=== PATIENT | female | born 1950 | race Caucasian/White ===

== ENCOUNTER → 2018-09-30 11:04 | Outpatient (CLI) | payer OTHER, SELFPAY ==
[2018-09-30 11:48] LABS: Hematocrit 39.5 % (36-46); Hemoglobin 13.1 g/dL (12.0-16.0); Mean Corpuscular HGB Conc 33.2 % (30-36); Mean Corpuscular Hemoglobin 29.7 PG (26-34); Mean Corpuscular Volume 89.6 fL (80-100); Platelet Count 275 X10^3/uL (150-400); Red Cell Distribution Width 14.1 % (11.6-14.8)
[2018-09-30 11:59] LABS: Hemoglobin A1C% w Est Avg Glu 5.4 % (4.0-6.0)
[2018-09-30 12:16] LABS: Alanine Aminotransferase 32 IU/L (9-52); Albumin 4.2 g/dL (3.5-5.0); Albumin Globulin Ratio 1.6 (1.0-2.8); Alkaline Phosphatase 80 U/L (38-126); Aspartate Aminotransferase 24 IU/L (14-36); BUN Creatinine Ratio 22.9 (6-22); Bilirubin Total 0.6 mg/dL (0.2-1.3); Blood Urea Nitrogen 16 mg/dL (7-17); Calcium 9.3 mg/dL (8.4-10.2); Carbon Dioxide 26 mmol/L (22-32); Chloride 105 mmol/L (98-107); Cholesterol 185 mg/dL (140-199); Estimated Glomerular Filt Rate > 60.0 mL/min (>60); Globulin 2.6 g/dL (1.7-4.1); Glucose 100 mg/dL (80-110); HDL Cholesterol 73 mg/dL (40-60); HEMOLYSIS < 15 (0-50); LDL Cholesterol Calculated 85 mg/dL (<100); Sodium 139 mmol/L (137-145); Total Protein 6.8 g/dL (6.3-8.2); Triglycerides 137 mg/dL (35-150)
[2018-10-02 15:40] LABS: Cortisol, Free, Urine 19.9 mcg/24 h (4.0-50.0); Total Volume 3300 mL
== END ==
PROVIDERS: PCP Nurse Practitioner Family; Visit Provider Nurse Practitioner Family
DX: J44.9 Chronic obstructive pulmonary disease, unspecified (principal); Z68.31 Body mass index [BMI] 31.0-31.9, adult; E78.2 Mixed hyperlipidemia; E27.9 Disorder of adrenal gland, unspecified
CPT/HCPCS: 36415; 80053; 80061; 82530; 83036; 85027

== ENCOUNTER → 2018-10-02 10:41 | Outpatient (CLI) | payer OTHER, SELFPAY ==
--- NOTE | 2018-10-02 11:13 | DI.CT.S_ITS ---
PROCEDURE: CT ABDOMEN WO/W CON INDICATIONS: left adrenal mass TECHNIQUE: Noncontrast 3 mm thick sections acquired from the diaphragms to the iliac crests. After the administration of intravenous contrast, 3 mm thick venous-phase and 10-minute delayed images acquired from the diaphragms to the iliac crests. For radiation dose reduction, the following was used: automated exposure control, adjustment of mA and/or kV according to patient size. COMPARISON: Outside Facility, RG, CT ADRENAL WITHOUT CONTRAST, 07/19/2017, 13:04. Outside Facility, RG, CT ADRENAL WITHOUT CONTRAST, 08/19/2016, 17:07. FINDINGS: Image quality: Excellent. Lung bases: Lung bases are clear. Heart size is normal. There is a small hiatal hernia. Adrenal glands: There is a 1.2 cm left adrenal nodule demonstrating CT density 3.0 HU, consistent with a benign adrenal adenoma. It appears stable since the last exam. Solid organs: Liver is normal in size and enhancement. There is mild intrahepatic and extrahepatic biliary dilation. Gallbladder is surgically absent. Biliary system is non dilated. Pancreas enhances normally. Spleen is normal in size and enhancement. Kidneys are normal in size and enhancement. No hydronephrosis or nephrolithiasis. Peritoneum and bowel: Unenhanced bowel loops are normal in caliber and wall thickness. No free fluid or air. Nodes and vessels: No retroperitoneal or mesenteric adenopathy by size criteria. Aorta and inferior vena cava are normal in size. Miscellaneous: No ventral hernias. Bones: No suspicious bony lesions. No vertebral body compression fractures. IMPRESSION: 1. Stable benign 1.2 cm left adrenal adenoma. No further followup is recommended. 2. Cholecystectomy. There is mild intrahepatic and extrahepatic biliary dilation. Please correlate with serum bilirubin. 3. Small hiatal hernia. Dictated by: Annie Barton M.D. on 10/02/2018 at 14:49 Approved by: Annie Barton M.D. on 10/02/2018 at 14:55
== END ==
PROVIDERS: PCP Nurse Practitioner Family; Visit Provider Nurse Practitioner Family
DX: E27.9 Disorder of adrenal gland, unspecified (principal); K83.8 Other specified diseases of biliary tract; K44.9 Diaphragmatic hernia without obstruction or gangrene; Z90.49 Acquired absence of other specified parts of digestive tract
CPT/HCPCS: 74170; Q9967

== ENCOUNTER → 2018-10-05 13:54 | Outpatient (CLI) | payer OTHER, SELFPAY ==
--- NOTE | 2018-10-05 13:56 | DI.MG.S_ITS ---
BILATERAL DIGITAL SCREENING MAMMOGRAM 3D/2D WITH CAD: 10/05/2018 CLINICAL: Routine screening. Comparison is made to exams dated: 07/30/2016 mammogram, 09/14/2014 mammogram, and 08/31/2012 mammogram - [facility]. There are scattered fibroglandular elements in both breasts. Current study was also evaluated with a Computer Aided Detection (CAD) system. There are benign calcifications in both breasts. No significant masses, calcifications, or other findings are seen in either breast. There has been no significant interval change. IMPRESSION: There is no mammographic evidence of malignancy. A 1 year screening mammogram is recommended. This exam was interpreted at Station ID: [id number]. NOTE: For mammograms, a report in lay terms will be sent to the patient. Approximately 15% of breast malignancies will not be visualized mammographically. In the management of a palpable breast mass, a negative mammogram must not discourage biopsy of a clinically suspicious lesion. Electronically Signed By: Eric irby/austen:10/05/2018 17:25:56 letter sent: Normal Exam ACR BI-RADS Category 2: Benign Finding(s) 3342F
== END ==
PROVIDERS: PCP Nurse Practitioner Family; Visit Provider Nurse Practitioner Family
DX: Z12.31 Encounter for screening mammogram for malignant neoplasm of breast (principal)
CPT/HCPCS: 77063; 77067

== ENCOUNTER → 2019-07-06 14:18 | Outpatient (CLI) | payer OTHER, SELFPAY ==
[2019-07-06 15:38] LABS: Alanine Aminotransferase 24 IU/L (<35); Albumin 4.5 g/dL (3.5-5.0); Albumin Globulin Ratio 1.7 (1.0-2.8); Alkaline Phosphatase 100 U/L (38-126); Aspartate Aminotransferase 31 IU/L (14-36); BUN Creatinine Ratio 28.8 (6-22); Bilirubin Total 0.7 mg/dL (0.2-1.3); Blood Urea Nitrogen 23 mg/dL (7-17); Calcium 9.4 mg/dL (8.4-10.2); Carbon Dioxide 25 mmol/L (22-32); Chloride 105 mmol/L (98-107); Cholesterol 193 mg/dL (140-199); Estimated Glomerular Filt Rate > 60.0 mL/min (>60); Globulin 2.6 g/dL (1.7-4.1); Glucose 100 mg/dL (80-110); HDL Cholesterol 94 mg/dL (40-60); HEMOLYSIS < 15 (0-50); LDL Cholesterol Calculated 82 mg/dL (<100); Potassium 4.4 mmol/L (3.4-5.1); Sodium 140 mmol/L (137-145); Total Protein 7.1 g/dL (6.3-8.2); Triglycerides 84 mg/dL (35-150)
[2019-07-06 15:45] LABS: Rheumatoid Factor < 8.6 IU/mL (<12.0)
[2019-07-06 16:58] LABS: Add Manual Diff / Slide Review NO; Basophils Absolute Auto 0 /uL (0-100); Basophils Percent Auto 0.9 % (0-2); Eosinophils Absolute Auto 200 /uL (0-450); Eosinophils Percent Auto 4.5 % (2-4); Hematocrit 41.5 % (36-46); Hemoglobin 13.9 g/dL (12.0-16.0); Lymphocytes Absolute Auto 1600 /uL (1100-4500); Lymphocytes Percent Auto 35.2 % (25-40); Mean Corpuscular HGB Conc 33.5 % (30-36); Mean Corpuscular Hemoglobin 30.7 PG (26-34); Mean Corpuscular Volume 91.4 fL (80-100); Monocytes Absolute Auto 400 /uL (0-900); Monocytes Percent Auto 8.4 % (3-14); Neutrophils Absolute Auto 2300 /uL (1500-7000); Platelet Count 291 X10^3/uL (150-400); Red Blood Cell Count 4.54 X10^6/uL (4.0-5.2); Red Cell Distribution Width 13.7 % (11.6-14.8); White Blood Cell Count 4.4 X10^3/uL (4.5-11.0)
[2019-07-06 19:41] LABS: TSH w/ Reflex to FT4 2.44 uIU/mL (0.47-4.68)
[2019-07-08 14:22] LABS: Alpha 1 Anti Trypsin 132 mg/dL (83-199)
[2019-07-09 12:01] LABS: CCP Antibody (IgG) < 16 Units (< 20)
== END ==
PROVIDERS: PCP Internal Medicine; Visit Provider Internal Medicine
DX: M19.90 Unspecified osteoarthritis, unspecified site (principal); E78.5 Hyperlipidemia, unspecified; J42 Unspecified chronic bronchitis; Z83.49 Family history of other endocrine, nutritional and metabolic diseases; F33.9 Major depressive disorder, recurrent, unspecified
CPT/HCPCS: 36415; 80053; 80061; 82103; 84443; 85025; 86200; 86430

== ENCOUNTER → 2019-09-21 14:05 | Outpatient (CLI) | payer MEDICARE, SELFPAY ==
--- NOTE | 2019-09-21 | DI.RAD.S_ITS ---
PROCEDURE: XR CHEST 2V INDICATIONS: Bronchitis TECHNIQUE: 2 views of the chest were acquired. COMPARISON: None. FINDINGS: Surgical changes and devices: None. Lungs and pleura: Lungs are clear. No pleural effusions or pneumothorax. Mediastinum: Mediastinal contours are normal. Heart size is normal. Lateral curvature of the spine and spondylitic changes IMPRESSION: No acute disease Dictated by: Alber Gerber M.D. on 09/21/2019 at 16:10 Approved by: Alber Gerber M.D. on 09/21/2019 at 16:10
== END ==
PROVIDERS: PCP Internal Medicine; Referring Provider Internal Medicine; Visit Provider Internal Medicine
DX: J40 Bronchitis, not specified as acute or chronic (principal)
CPT/HCPCS: 71046

== ENCOUNTER → 2020-11-15 19:15 | Outpatient (ROUT) | payer MEDICARE, SELFPAY ==
[2020-11-15 20:22] LABS: Alanine Aminotransferase 26 IU/L (<35); Albumin 4.2 g/dL (3.5-5.0); Albumin Globulin Ratio 1.6 (1.0-2.8); Alkaline Phosphatase 107 U/L (38-126); Aspartate Aminotransferase 32 IU/L (14-36); BUN Creatinine Ratio 22.1 (6-22); Bilirubin Total 0.5 mg/dL (0.2-1.3); Blood Urea Nitrogen 17 mg/dL (7-17); Calcium 9.7 mg/dL (8.4-10.2); Carbon Dioxide 23 mmol/L (22-32); Chloride 107 mmol/L (98-107); Estimated Glomerular Filt Rate > 60.0 mL/min (>60); Globulin 2.6 g/dL (1.7-4.1); Glucose 103 mg/dL (80-110); HEMOLYSIS < 15 (0-50); Potassium 4.1 mmol/L (3.4-5.1); Sodium 141 mmol/L (137-145); Total Protein 6.8 g/dL (6.3-8.2)
[2020-11-15 20:49] LABS: TSH w/ Reflex to FT4 2.14 uIU/mL (0.47-4.68)
[2020-11-15 21:14] LABS: Vitamin B12 482 pg/mL (239-931)
== END ==
PROVIDERS: PCP Internal Medicine; Visit Provider Internal Medicine
DX: R20.2 Paresthesia of skin (principal)
CPT/HCPCS: 80053; 82607; 84443

== ENCOUNTER → 2021-02-10 15:10 | Outpatient (CLI) | payer MEDICARE, SELFPAY ==
--- NOTE | 2021-02-10 | DI.MG.S_ITS ---
BILATERAL DIGITAL SCREENING MAMMOGRAM 3D/2D WITH CAD: 02/10/2021 CLINICAL: Routine screening. Comparison is made to exams dated: 10/05/2018 mammogram - [facility], 07/30/2016 mammogram, and 09/14/2014 mammogram - [facility]. There are scattered fibroglandular elements in both breasts. Current study was also evaluated with a Computer Aided Detection (CAD) system. There are benign calcifications in both breasts. No significant masses, calcifications, or other findings are seen in either breast. There has been no significant interval change. IMPRESSION: BENIGN There is no mammographic evidence of malignancy. A 1 year screening mammogram is recommended. This exam was interpreted at Station ID: [id number]. NOTE: For mammograms, a report in lay terms will be sent to the patient. Approximately 15% of breast malignancies will not be visualized mammographically. In the management of a palpable breast mass, a negative mammogram must not discourage biopsy of a clinically suspicious lesion. Electronically Signed By: Chris Sim M.D., jr/austen:02/12/2021 09:38:55 letter sent: Normal Exam ACR BI-RADS Category 2: Benign Finding(s) 3342F
== END ==
PROVIDERS: PCP Internal Medicine; Referring Provider Internal Medicine; Visit Provider Internal Medicine
DX: Z12.31 Encounter for screening mammogram for malignant neoplasm of breast (principal)
CPT/HCPCS: 77063; 77067

== ENCOUNTER → 2021-06-30 10:33 | Outpatient (CLI) | payer MEDICARE, SELFPAY ==
[2021-06-30 10:59] LABS: COVID19 -Nasal RAPID Negative (Negative)
== END ==
PROVIDERS: PCP Internal Medicine; Visit Provider Nurse Practitioner Family
DX: R05.9 Cough, unspecified (principal); R09.89 Other specified symptoms and signs involving the circulatory and respiratory systems
CPT/HCPCS: 87635

== ENCOUNTER → 2021-06-30 10:48 | Outpatient (CLI) | payer MEDICARE, SELFPAY ==
--- NOTE | 2021-06-30 10:49 | DI.RAD.S_ITS ---
PROCEDURE: XR CHEST 2V INDICATIONS: Cough TECHNIQUE: 2 views of the chest were acquired. COMPARISON: [facility], CR, XR CHEST 2V, 09/21/2019, 14:04. FINDINGS: Surgical changes and devices: None. Lungs and pleura: Lungs are clear. No pleural effusions or pneumothorax. Mediastinum: Mediastinal contours are normal. Heart size is normal. Bones and chest wall: No suspicious bony abnormalities. Soft tissues appear unremarkable. IMPRESSION: No acute process. Dictated by: Cristina Shultz M.D. on 06/30/2021 at 10:26 Approved by: Cristina Shultz M.D. on 06/30/2021 at 10:26
== END ==
PROVIDERS: PCP Internal Medicine; Referring Provider Nurse Practitioner Family; Visit Provider Nurse Practitioner Family
DX: R05.9 Cough, unspecified (principal); R09.89 Other specified symptoms and signs involving the circulatory and respiratory systems
CPT/HCPCS: 71046; 87635

== ENCOUNTER → 2021-11-17 12:31 | Outpatient (CLI) | payer MEDICARE, SELFPAY | PROVIDERS: PCP Internal Medicine; Referring Provider Psychiatry & Neurology Neurology; Visit Provider Psychiatry & Neurology Neurology | DX: G37.9 Demyelinating disease of central nervous system, unspecified (principal) | CPT/HCPCS: 36415; 86053; 86363 ==

== ENCOUNTER → 2022-04-13 15:41 | Outpatient (CLI) | payer MEDICARE, SELFPAY ==
--- NOTE | 2022-04-13 15:47 | DI.RAD.S_ITS ---
PROCEDURE: XR CHEST 2V INDICATIONS: COPD TECHNIQUE: 2 views of the chest were acquired. COMPARISON: [facility], CR, XR CHEST 2V, 09/21/2019, 14:04. [facility], CR, XR CHEST 2V, 06/30/2021, 10:43. FINDINGS: Surgical changes and devices: Cholecystectomy clips are seen. Lungs and pleura: Lungs are clear. No pleural effusions or pneumothorax. The lungs are hyperexpanded, with flattening of the hemidiaphragms seen. Mediastinum: The cardiac contours are within normal limits. The aorta demonstrates calcification and tortuosity. Bones and chest wall: No suspicious bony abnormalities. Age-appropriate bony degenerative changes are seen. S-shaped scoliotic curvature is seen. Soft tissues appear unremarkable. IMPRESSION: Hyperexpanded lungs can be seen, which is consistent with the given history. No darinel plain film abnormality is seen. Postoperative and degenerative changes are seen. Dictated by: Ronald Jenkins M.D. on 04/13/2022 at 15:32 Approved by: Ronald Jenkins M.D. on 04/13/2022 at 15:33
== END ==
PROVIDERS: PCP Internal Medicine; Referring Provider Internal Medicine; Visit Provider Internal Medicine
DX: J44.9 Chronic obstructive pulmonary disease, unspecified (principal)
CPT/HCPCS: 71046

== ENCOUNTER → 2022-05-04 09:57 | Outpatient (CLI) | payer OTHER, SELFPAY ==
--- NOTE | 2022-05-04 | DI.MG.S_ITS ---
BILATERAL DIGITAL SCREENING MAMMOGRAM 3D/2D WITH CAD: 05/04/2022 CLINICAL: Routine screening. Comparison is made to exams dated: 02/10/2021 mammogram, 10/05/2018 mammogram - [facility], and 07/30/2016 mammogram - [facility]. There are scattered areas of fibroglandular density in both breasts (category b / 25%-50% glandular tissue). Current study was also evaluated with a Computer Aided Detection (CAD) system. There are benign calcifications in both breasts. No significant masses, calcifications, or other findings are seen in either breast. There has been no significant interval change. IMPRESSION: BENIGN There is no mammographic evidence of malignancy. A 1 year screening mammogram is recommended. Based on the Tyrer Cuzick model (a risk assessment model) the patient's lifetime risk is 4.7% and her 10 year risk is 3.5%. According to the ACR, ACS, and NCCN guidelines, an annual breast MRI exam along with mammogram is recommended if the patient's lifetime risk is 20% or greater. This exam was interpreted at Station ID: [id number]. NOTE: For mammograms, a report in lay terms will be sent to the patient. Approximately 15% of breast malignancies will not be visualized mammographically. In the management of a palpable breast mass, a negative mammogram must not discourage biopsy of a clinically suspicious lesion. Electronically Signed By: Eric irby/austen:05/06/2022 11:14:45 letter sent: Normal Exam ACR BI-RADS Category 2: Benign Finding(s) 3342F
== END ==
PROVIDERS: PCP Internal Medicine; Referring Provider Internal Medicine; Visit Provider Internal Medicine
DX: Z12.31 Encounter for screening mammogram for malignant neoplasm of breast (principal)
CPT/HCPCS: 77063; 77067

== ENCOUNTER → 2022-06-29 12:10 | Outpatient (CLI) | payer OTHER, SELFPAY ==
[2022-06-29 15:02] LABS: Cholesterol 173 mg/dL (140-199); HDL Cholesterol 59 mg/dL (40-60); LDL Cholesterol Calculated 94 mg/dL (<100); Triglycerides 102 mg/dL (35-150)
== END ==
PROVIDERS: PCP Internal Medicine; Referring Provider Internal Medicine Cardiovascular Disease; Visit Provider Internal Medicine Cardiovascular Disease
DX: I35.9 Nonrheumatic aortic valve disorder, unspecified (principal)
CPT/HCPCS: 36415; 80061

== ENCOUNTER → 2022-11-01 10:11 | Outpatient (CLI) | payer OTHER, SELFPAY ==
--- NOTE | 2022-11-01 10:25 | DI.DEXA.S_ITS ---
Bone Density Report Name: BARBARA KHOURY Age: 71 Sex: Female Ethnicity: White Date of : 1950 Indication: postmenopausal; screening for osteoporosis; Referring Provider: DIONISIO ARREGUIN Study: Bone densitometry was performed. Exam Date: November 01, 2022 Accession number: [id number] Bone Density: Region BMD T-score Z-score Classification AP Spine(L1-L4) 1.074 0.2 2.5 Normal Femoral Neck (Left) 0.663 -1.7 0.3 Osteopenia Total Hip (Left) 0.797 -1.2 0.5 Osteopenia Femoral Neck (Right) 0.743 -1.0 1.0 Normal Total Hip (Right) 0.772 -1.4 0.3 Osteopenia Total Hip Mean 0.785 -1.3 0.4 Osteopenia World Health Organization criteria for BMD impression classify patients as: Normal (T-score at or above -1.0), Osteopenia (T-score between -1.0 and -2.5), or Osteoporosis (T-score at or below -2.5). 10-year Fracture Risk(1): Major Osteoporotic Fracture 11% Hip Fracture 1.9% Reported Risk Factors: [place] (), Neck BMD=0.663, BMI=31.0 (1) FRAX(R) Version 3.08. Fracture probability calculated for an untreated patient. Fracture probability may be lower if the patient has received treatment. Impression: The patient has low bone mass, based on the Left Femoral Neck T-score. The patient has an estimated ten-year risk of hip fracture of 1.9% and an estimated ten-year risk of major fracture of 11%, based on the WHO FRAX algorithm. Discussion: BONE DENSITY IS LOW AT ONE OR MORE SKELETAL SITES. This patient's lowest T-score is low at one or more skeletal sites. It meets the World Health Organization's (WHO) criteria for ?low bone mass? (T-score between -1.0 and -2.5). The patient's 10-year risk of fracture as calculated by FRAX is less than the threshold where pharmacological therapy is recommended by the National Osteoporosis Foundation (NOF). However, all treatment decisions require clinical judgment and consideration of individual patient factors, including patient preferences, comorbidities, previous drug use, risk factors not captured in the FRAX model (e.g., frailty, falls, vitamin D deficiency, increased bone turnover, interval significant decline in bone density) and possible under or overestimation of fracture risk by FRAX. The patient should follow a healthful lifestyle (good nutrition with adequate calcium and vitamin D, and appropriate weight-bearing exercise). Follow-Up: Consider repeating this study in 2 to 3 years to reassess this patient's status, or sooner if there is some new clinical indication. Reported by: DIDIER BRUNER M.D. on 11/01/2022 10:38:00 AM.
== END ==
PROVIDERS: PCP Internal Medicine; Referring Provider Internal Medicine; Visit Provider Internal Medicine
DX: Z78.0 Asymptomatic menopausal state (principal); Z13.820 Encounter for screening for osteoporosis; M85.852 Other specified disorders of bone density and structure, left thigh
CPT/HCPCS: 77080

== ENCOUNTER → 2023-05-17 11:39 | Outpatient (CLI) | payer OTHER, SELFPAY ==
--- NOTE | 2023-05-17 | DI.MG.S_ITS ---
BILATERAL DIGITAL SCREENING MAMMOGRAM 3D/2D WITH CAD: 05/17/2023 CLINICAL: Routine screening. Comparison is made to exams dated: 05/04/2022 mammogram, 02/10/2021 mammogram, and 10/05/2018 mammogram - [facility]. There are scattered areas of fibroglandular density in both breasts (category b / 25%-50% glandular tissue). Current study was also evaluated with a Computer Aided Detection (CAD) system. There are benign calcifications in both breasts. No significant masses, calcifications, or other findings are seen in either breast. There has been no significant interval change. IMPRESSION: BENIGN There is no mammographic evidence of malignancy. A 1 year screening mammogram is recommended. Based on the Tyrer Cuzick model (a risk assessment model) the patient's lifetime risk is 4.5% and her 10 year risk is 3.6%. According to the ACR, ACS, and NCCN guidelines, an annual breast MRI exam along with mammogram is recommended if the patient's lifetime risk is 20% or greater. This exam was interpreted at Station ID: [id number]. NOTE: For mammograms, a report in lay terms will be sent to the patient. Approximately 15% of breast malignancies will not be visualized mammographically. In the management of a palpable breast mass, a negative mammogram must not discourage biopsy of a clinically suspicious lesion. Electronically Signed By: Moreno pedraza/austen:05/17/2023 14:03:43 letter sent: Normal Exam ACR BI-RADS Category 2: Benign Finding(s) 3342F
== END ==
PROVIDERS: PCP Internal Medicine; Referring Provider Internal Medicine; Visit Provider Internal Medicine
DX: Z12.31 Encounter for screening mammogram for malignant neoplasm of breast (principal)
CPT/HCPCS: 77063; 77067

== ENCOUNTER 2024-01-12 11:33 | Emergency (ER) | payer MEDICARE, SELFPAY ==
[2024-01-12] VITALS (11 sets, daily range): BP systolic 143–180; BP diastolic 65–81; PULSE 55–68; RESP 18–20; TEMP 37; O2SAT 94–99; BMI 31.8
--- NOTE | 2024-01-12 11:36 | EKG_ITS ---
[address] [address] Test Date: 2024-01-12 Pat Name: Rosio Banks Department: Room: Gender: Female Skip Pitman: MARIA ISABEL : 1950 Requested By: Order Number: [id number] Reading MD: Bimal Vasquez Measurements Intervals [place] Rate: 53 P: 44 SC: 160 QRS: 73 QRSD: 98 T: 67 QT: 498 QTc: 467 Interpretive Statements Sinus bradycardia with sinus arrhythmia Electronically Signed On 01-12-2024 16:37:36 PDT by Bimal Vasquez
--- NOTE | 2024-01-12 11:52 | DI.CT.S_ITS ---
PROCEDURE: CT ABDOMEN PELVIS W CON INDICATIONS: L flank pain TECHNIQUE: After the administration of intravenous contrast, axial sections acquired from the lung bases to the pubic symphysis. Coronal and sagittal reformats were performed. For radiation dose reduction, the following was used: automated exposure control, adjustment of mA and/or kV according to patient size. COMPARISON: [facility], CT, CT ABDOMEN WO/W CON, 10/02/2018, 10:49. FINDINGS: Image quality: Diagnostic. Lower Chest: No significant findings. ABDOMEN: Liver: No solid mass. Gallbladder: Surgically absent Biliary ducts: Mild intrahepatic biliary ductal dilatation. Severe extrahepatic biliary ductal dilatation. Common hepatic duct measures 20 mm. Common bile duct measures 15 mm. This is increased. Pancreas: No ductal dilation. Spleen: Size is within normal limits. Adrenal Glands: No adrenal nodules. Kidneys and Ureters: No hydronephrosis. No solid mass. No complex renal cystic lesion which requires follow up. Stomach and Bowel: Small hiatal hernia. Normal colonic caliber, without significant wall thickening. Appendix is not seen. No evidence of appendicitis. Diverticulosis of the descending and sigmoid colon without evidence of acute diverticulitis. Peritoneum: No abnormal intraperitoneal fluid. No free air. Ventral Wall: No significant ventral hernia. Abdominal Nodes: No retroperitoneal or mesenteric adenopathy by size criteria. Vessels: Aorta and inferior vena cava are normal in size. PELVIS: Pelvic Organs: Unremarkable. Bladder: No bladder wall thickening, accounting for underdistention. Pelvic Nodes: No enlarged lymph nodes. Miscellaneous: No inguinal hernias are seen. Bones: No aggressive osseous abnormality. IMPRESSION: 1. No acute process. 2. Increased biliary ductal dilatation. This could be further assessed with ERCP, if clinically indicated. 3. Appendix not seen. No evidence of appendicitis. 4. Small hiatal hernia. Dictated by: Cristina Shultz M.D. on 01/12/2024 at 13:03 Approved by: Cristina Shultz M.D. on 01/12/2024 at 13:07
[2024-01-12 11:53] LABS: Add Manual Diff / Slide Review NO; Basophils Absolute Auto 0 /uL (0-100); Basophils Percent Auto 0.5 % (0-2); Eosinophils Absolute Auto 0 /uL (0-450); Eosinophils Percent Auto 0.3 % (2-4); Hemoglobin 14.1 g/dL (12.0-16.0); Lymphocytes Absolute Auto 700 /uL (1100-4500); Mean Corpuscular HGB Conc 33.6 % (30-36); Mean Corpuscular Hemoglobin 30.2 PG (26-34); Mean Corpuscular Volume 89.8 fL (80-100); Monocytes Absolute Auto 200 /uL (0-900); Monocytes Percent Auto 3.5 % (3-14); Neutrophils Absolute Auto 4100 /uL (1500-7000); Neutrophils Percent Auto 81.7 % (50-75); Platelet Count 234 X10^3/uL (150-400); Red Blood Cell Count 4.68 X10^6/uL (4.0-5.2); Red Cell Distribution Width 13.6 % (11.6-14.8)
[2024-01-12 12:01] LABS: Alanine Aminotransferase 34 IU/L (<35); Albumin 4.8 g/dL (3.5-5.0); Albumin Globulin Ratio 1.6 (1.0-2.8); Alkaline Phosphatase 118 U/L (38-126); Aspartate Aminotransferase 42 IU/L (14-36); BUN Creatinine Ratio 21.7 (6-22); Bilirubin Total 0.8 mg/dL (0.2-1.3); Blood Urea Nitrogen 15 mg/dL (7-17); Calcium 8.9 mg/dL (8.4-10.2); Carbon Dioxide 23 mmol/L (22-32); Chloride 105 mmol/L (98-107); Estimated Glomerular Filt Rate > 60 mL/min (>60); Glucose 148 mg/dL (80-110); HEMOLYSIS < 15 (0-50); Lipase 74 U/L (23-300); Potassium 3.6 mmol/L (3.4-5.1); Sodium 137 mmol/L (137-145); Total Protein 7.8 g/dL (6.3-8.2)
--- NOTE | 2024-01-12 12:01 | ED.BACK ---
HPI - Back Pain/Injury General Chief Complaint: Back Pain/Injury Stated Complaint: Left flank pain Time Seen by Provider: 01/12/24 11:46 Source: patient and EMS Mode of arrival: EMS Limitations: no limitations History of Present Illness HPI Narrative: Patient is a 73-year-old female who is here for evaluation of left-sided flank pain that she states is radiating around to the left side of her abdomen. States the symptoms started earlier this morning. She did take Celebrex this morning. The pain has been consistent. Not worse with palpation or movement. No blood in her urine. No problems urinating. She received some Zofran and fentanyl by EMS prior to arrival. She continues to remain nauseous. States the fentanyl did not improve any of her symptoms. She was never had a kidney stone. No skin rashes. No change in bowel habits. Related Data Home Medications Medication Instructions Recorded Confirmed calcium carbonate-vitamin D3 PO 08/14/18 12/12/23 [Calcium 600 with Vitamin D3] multivitamin,[id number] 1 tab PO DAILY 08/14/18 12/12/23 (Complete Multivitamin tablet) cetirizine 10 mg capsule 10 mg PO DAILY 09/09/18 12/12/23 Glucosamine-Chondroitin PO BID 10/13/18 12/12/23 baclofen 10 mg tablet 10 mg PO DAILY 12/12/23 12/12/23 budesonide-formoterol HFA 160 2 puff inhalation BID 12/12/23 12/12/23 mcg-4.5 mcg/actuation aerosol inhaler (Symbicort) celecoxib 200 mg capsule 200 mg PO DAILY 12/12/23 12/12/23 fluoxetine 40 mg capsule 40 mg PO DAILY 12/12/23 12/12/23 rosuvastatin 20 mg tablet 20 mg PO DAILY 12/12/23 12/12/23 Previous Rx's Medication Instructions Recorded Disabled parking permit #1 ea 09/09/18 mirtazapine 15 mg tablet 15 mg PO DAILY #90 tabs 12/24/18 fluticasone propionate 50 2 spray intranasal DAILY #54.6 01/20/19 mcg/actuation nasal grams spray,suspension (Allergy Relief (fluticasone)) azelastine 137 mcg (0.1 %) nasal 137 mcg (0.137 mL) intranasal BID 12/12/23 spray aerosol #90 mL azithromycin 250 mg tablet See Rx Instructions PO .COMPLEX #6 12/12/23 tabs hydrocodone 5 mg-acetaminophen 325 1 tab PO Q8H PRN pain #10 tabs 01/12/24 mg tablet ondansetron 4 mg disintegrating 4 mg PO Q6H PRN nausea and 01/12/24 tablet vomiting #14 tabs Allergies Allergy/AdvReac Type Severity Reaction Status Date / Time No Known Drug Allergies Allergy Verified 12/12/23 15:28 Review of Systems Review of Systems ROS Unobtainable: All systems reviewed & are unremarkable except as noted in HPI and below Patient History Medical History Vision disorder Actinic keratosis Osteoarthritis (~1989) Bronchial spasms Postnasal drip (~1994) COPD (chronic obstructive pulmonary disease) (~1994) Chronic cough (~1994) Depression (~1984) Anxiety (~1984) Scoliosis Back problem (~2007) Foot pain (~2016) Cervical spine disease (~2016) Rubella (~1956) Measles (~1956) Chicken pox (~1954) Vitreous detachment (~2012) History of recurrent ear infection (~1984) Hearing loss (~2012) Cataracts, bilateral (~2015) GERD (gastroesophageal reflux disease) (~2014) Diverticular disease (~2013) Colon polyps (~2015) Adrenal mass (~2015) Hyperlipidemia (~2005) Surgical History Anesthesia Fractures (~1988) History of cholecystectomy (~2016) History of ear surgery (~1984) History of nasal surgery (~2014) History of surgery (~1996) History of tonsillectomy (~1953) History of tubal ligation (~1980) Family History Father Heart disease Hypertension Stroke Mother Diabetes mellitus Brother Ulcerative colitis Grandfather Stroke Grandfather Stroke Grandmother Heart disease Social History Smoking Status: Former smoker second hand exposure: No alcohol intake: current (1-2 glasses of wine a day) substance use type: does not use Smoking Status: Former smoker alcohol intake frequency: a few times a week Substance Use Type: does not use Exam Initial Vital Signs Initial Vital Signs: Vital Signs Temperature 98.6 F 01/12/24 11:39 Pulse Rate 55 L 01/12/24 11:39 Respiratory Rate 18 01/12/24 11:39 Blood Pressure 155/75 H 01/12/24 11:39 Pulse Oximetry 97 01/12/24 11:39 Oxygen Delivery Method Room Air 01/12/24 11:39 Const General: cooperative and No ill appearing HENPA Head: normal to inspection and normocephalic Resp Effort & Inspection: normal respiratory effort Auscultation: clear to auscultation bilaterally Cardio Rate: regular rate Rhythm: regular rhythm Back/Spine/Pelvis Back: No CVA tenderness Thoracic/Lumbar Spine: No paraspinal tenderness and No lumbar spinal tenderness Skin General: no rashes or lesions noted Neuro General: patient alert, patient awake and moves all extremities Course Orders Ordered: ED Orders 01/12/24 11:30 Complete Blood Count AUTO DIFF Stat Comprehensive Metabolic Panel Stat Lipase Stat 01/12/24 11:36 EKG-12 Lead Stat 01/12/24 11:52 CT abdomen pelvis w con Stat 01/12/24 13:50 Urine Microscopic Stat Discontinued Medications Ketorolac Tromethamine (Ketorolac 30 Mg/Ml Vial) 30 mg IV NOW ONE Stop: 01/12/24 12:02 Last Admin: 01/12/24 12:08 Dose: 30 mg Documented By: ROSE MARIE Metoclopramide HCl (Metoclopramide 10 Mg/2 Ml Inj) 10 mg IV NOW ONE Stop: 01/12/24 14:17 Last Admin: 01/12/24 14:25 Dose: 10 mg Documented By: KELSI Ondansetron HCl (Ondansetron 4 Mg/2 Ml Inj) 4 mg IV NOW PRN PRN Reason: Nausea And Vomiting Last Admin: 01/12/24 13:07 Dose: 4 mg Documented By: ROSE MARIE Vital Signs Vital signs: Vital Signs - 8 hr 01/12/24 11:39 01/12/24 13:53 01/12/24 13:54 Temperature 98.6 F Pulse Rate 55 L 63 Respiratory Rate 18 Blood Pressure 155/75 H 180/81 H Pulse Oximetry 97 98 Oxygen Delivery Method Room Air 01/12/24 13:54 01/12/24 14:00 01/12/24 14:01 Temperature Pulse Rate 63 61 65 Respiratory Rate Blood Pressure Pulse Oximetry 98 99 98 Oxygen Delivery Method Room Air 01/12/24 14:01 01/12/24 14:30 01/12/24 14:31 Temperature Pulse Rate 63 68 Respiratory Rate Blood Pressure 146/67 H Pulse Oximetry 98 98 Oxygen Delivery Method 01/12/24 14:31 01/12/24 15:00 01/12/24 15:00 Temperature Pulse Rate 60 Respiratory Rate Blood Pressure 157/79 H 156/73 H Pulse Oximetry 94 Oxygen Delivery Method 01/12/24 15:30 01/12/24 15:36 01/12/24 15:36 Temperature Pulse Rate 66 63 Respiratory Rate Blood Pressure 143/65 H Pulse Oximetry 96 Oxygen Delivery Method 01/12/24 15:51 Temperature Pulse Rate 65 Respiratory Rate 20 Blood Pressure 143/65 H Pulse Oximetry 96 Oxygen Delivery Method Room Air MDM - Back Pain/Injury Lab Data Attestation: I reviewed the patient's lab results. 01/12/24 11:30 01/12/24 11:30 Labs: Lab Results 01/12/24 01/12/24 Range/Units 11:30 13:50 WBC 5.0 (4.5-11.0) X10^3/uL RBC 4.68 (4.0-5.2) X10^6/uL Hgb 14.1 (12.0-16.0) g/dL Hct 42.0 (36-46) % MCV 89.8 (80-100) fL MCH 30.2 (26-34) PG MCHC 33.6 (30-36) % RDW 13.6 (11.6-14.8) % Plt Count 234 (150-400) X10^3/uL Neut % (Auto) 81.7 H (50-75) % Lymph % (Auto) 14.0 L (25-40) % [place] % (Auto) 3.5 (3-14) % Eos % (Auto) 0.3 L (2-4) % Baso % (Auto) 0.5 (0-2) % Neut # (Auto) 4100 (6530-9151) /uL Lymph # (Auto) 700 L (4026-8067) /uL [place] # (Auto) 200 (0-900) /uL Eos # (Auto) 0 (0-450) /uL Baso # (Auto) 0 (0-100) /uL Sodium 137 (137-145) mmol/L Potassium 3.6 (3.4-5.1) mmol/L Chloride 105 (98-107) mmol/L Carbon Dioxide 23 (22-32) mmol/L BUN 15 (7-17) mg/dL Creatinine 0.69 (0.52-1.04) mg/dL Estimated GFR > 60 (>60) mL/min BUN/Creatinine Ratio 21.7 (6-22) Glucose 148 H (80-110) mg/dL Calcium 8.9 (8.4-10.2) mg/dL Total Bilirubin 0.8 (0.2-1.3) mg/dL AST 42 H (14-36) IU/L ALT 34 (<35) IU/L Alkaline Phosphatase 118 (38-126) U/L Total Protein 7.8 (6.3-8.2) g/dL Albumin 4.8 (3.5-5.0) g/dL Globulin 3.0 (1.7-4.1) g/dL Albumin/Globulin Ratio 1.6 (1.0-2.8) Lipase 74 (23-300) U/L Urine RBC 0-1/hpf (0-5/HPF) Urine WBC None seen (0-5/HPF) Ur Squamous Epith Cells 0-1 /hpf (0-5/HPF) Urine Bacteria None seen (None) Ur Culture Indicated? Cult not indicated Vol Urine Centrifuged 10ml (spun) Urine Dip Bedside Urine Glucose Negative Bedside Urine Bilirubin - Negative Bedside Urine Ketone ++ 40 Urine Specific [place] 1.010 Bedside Urine Occult Blood +/- Bedside Urine pH 7.0 Bedside Urine Protein - Negative Bedside Urine Urobilinogen - Negative Bedside Urine Nitrite - Negative Bedside Urine Leukocytes - Negative Esterase Imaging Data CT scan - abdomen/pelvis: Radiologist's Impression: PROCEDURE: CT ABDOMEN PELVIS W CON INDICATIONS: L flank pain TECHNIQUE: After the administration of intravenous contrast, axial sections acquired from the lung bases to the pubic symphysis. Coronal and sagittal reformats were performed. For radiation dose reduction, the following was used: automated exposure control, adjustment of mA and/or kV according to patient size. COMPARISON: [facility], CT, CT ABDOMEN WO/W CON, 10/02/2018, 10:49. FINDINGS: Image quality: Diagnostic. Lower Chest: No significant findings. ABDOMEN: Liver: No solid mass. Gallbladder: Surgically absent Biliary ducts: Mild intrahepatic biliary ductal dilatation. Severe extrahepatic biliary ductal dilatation. Common hepatic duct measures 20 mm. Common bile duct measures 15 mm. This is increased. Pancreas: No ductal dilation. Spleen: Size is within normal limits. Adrenal Glands: No adrenal nodules. Kidneys and Ureters: No hydronephrosis. No solid mass. No complex renal cystic lesion which requires follow up. Stomach and Bowel: Small hiatal hernia. Normal colonic caliber, without significant wall thickening. Appendix is not seen. No evidence of appendicitis. Diverticulosis of the descending and sigmoid colon without evidence of acute diverticulitis. Peritoneum: No abnormal intraperitoneal fluid. No free air. Ventral Wall: No significant ventral hernia. Abdominal Nodes: No retroperitoneal or mesenteric adenopathy by size criteria. Vessels: Aorta and inferior vena cava are normal in size. PELVIS: Pelvic Organs: Unremarkable. Bladder: No bladder wall thickening, accounting for underdistention. Pelvic Nodes: No enlarged lymph nodes. Miscellaneous: No inguinal hernias are seen. Bones: No aggressive osseous abnormality. IMPRESSION: 1. No acute process. 2. Increased biliary ductal dilatation. This could be further assessed with ERCP, if clinically indicated. 3. Appendix not seen. No evidence of appendicitis. 4. Small hiatal hernia. ECG Data Attestation: I personally reviewed and interpreted this ECG as follows: Interpretation: Sinus bradycardia Ventricular rate of 53 Normal axis Normal QRS Normal QTC No ST T wave changes MDM Narrative Medical decision making narrative: Benign exam. Labs unremarkable. Urine unremarkable. CT scan shows no acute pathology. No skin changes concerning for zoster. Does not appear to be a urinary tract infection, pyelonephritis, renal colic or other intra-abdominal surgical issue. No indication for admission to the hospital. No indication for surgical consultation. Will discharge home with medicines for symptom treatment. Patient was given return precautions. Discharge Plan Departure Patient Disposition: Home Clinical Impression: Acute left flank pain, Nausea Instructions: DI for Nausea -- Adult, DI for Flank Pain Activity Restrictions/Additional Instructions: Use the nausea medication in the pain medication as needed. I do recommend a bland diet for the next couple days. Contact your primary care doctor for a follow-up. Return to the emergency department for new symptoms. Prescriptions: New ondansetron 4 mg tablet,disintegrating 4 mg PO Q6H PRN (Reason: nausea and vomiting) Qty: 14 0RF hydrocodone-acetaminophen 5-325 mg tablet 1 tab PO Q8H PRN (Reason: pain) Qty: 10 0RF No Action cetirizine 10 mg capsule 10 mg PO DAILY (DME) Disabled parking permit Qty: 1 0RF Dose Instruction: Patient meets criteria for disabled placard ; Rx Instructions: Patient meets criteria for disabled placard ; multivitamin,[id number] [Complete Multivitamin] tablet 1 tab PO DAILY calcium carbonate-vitamin D3 PO Glucosamine-Chondroitin PO BID mirtazapine 15 mg tablet 15 mg PO DAILY Qty: 90 2RF fluticasone propionate [Allergy Relief (fluticasone)] 50 mcg/actuation spray,suspension 2 spray NASAL DAILY Qty: 54.6 3RF celecoxib 200 mg capsule 200 mg PO DAILY rosuvastatin 20 mg tablet 20 mg PO DAILY fluoxetine 40 mg capsule 40 mg PO DAILY budesonide-formoterol [Symbicort] 160-4.5 mcg/actuation HFA aerosol inhaler 2 puff inhalation BID baclofen 10 mg tablet 10 mg PO DAILY azelastine 137 mcg (0.1 %) aerosol,spray 137 mcg intranasal BID Qty: 90 0RF Rx Instructions: administer into each nostril azithromycin 250 mg tablet See Rx Instructions PO .COMPLEX Qty: 6 0RF Rx Instructions: For 250 mg dose pack: take 500 mg today (day 1), then 250 mg for 4 days (days 2-5) PO Referrals: Sabra Whitney MD [Primary Care Provider] - Stand Alone Forms: Patient Portal/API
[2024-01-12] MEDS: KETOROLAC 30 MG/ML VIAL IV (12:08)
[2024-01-12] MEDS: ONDANSETRON 4 MG/2 ML INJ IV (13:07)
[2024-01-12 14:15] LABS: Bacteria Urine None Seen; RBC Urine 0-1/HPF (0-5/HPF); Squamous Epithelial Cell Urine 0-1 /HPF (0-5/HPF); Urine Volume 10mL (spun); WBC Urine None Seen (0-5/HPF)
[2024-01-12 14:16] LABS: Culture Indicated Urine Cult Not Indicated
[2024-01-12] MEDS: METOCLOPRAMIDE 10 MG/2 ML INJ IV (14:25)
== END 2024-01-12 15:48 | disposition home or self-care (01) ==
PROVIDERS: Emergency Provider Emergency Medicine; PCP Internal Medicine
DX: R10.9 Unspecified abdominal pain (principal); R11.0 Nausea
CPT/HCPCS: 36415; 74177; 80053; 81003; 81015; 83690; 85025; 93005; 96374; 96375; 99284; J1885; J2405; J2765; Q9967

== ENCOUNTER → 2024-06-03 15:21 | Outpatient (CLI) | payer MEDICARE, SELFPAY ==
--- NOTE | 2024-06-03 15:22 | DI.MG.S_ITS ---
BILATERAL DIGITAL SCREENING MAMMOGRAM 3D/2D WITH CAD: 06/03/2024 CLINICAL: Routine screening. Comparison is made to exams dated: 05/17/2023 mammogram, 05/04/2022 mammogram, 02/10/2021 mammogram, and 10/05/2018 mammogram - [facility]. There are scattered areas of fibroglandular density (category b / 25%-50% glandular tissue). Current study was also evaluated with a Computer Aided Detection (CAD) system. No significant masses, calcifications, or other findings are seen in either breast. There has been no significant interval change. IMPRESSION: NEGATIVE There is no mammographic evidence of malignancy. A 1 year screening mammogram is recommended. Based on the Tyrer Cuzick model (a risk assessment model) the patient's lifetime risk is 4.2% and her 10 year risk is 3.7%. According to the ACR, ACS, and NCCN guidelines, an annual breast MRI exam along with mammogram is recommended if the patient's lifetime risk is 20% or greater. This exam was interpreted at Station ID: [id number]. NOTE: For mammograms, a report in lay terms will be sent to the patient. Approximately 15% of breast malignancies will not be visualized mammographically. In the management of a palpable breast mass, a negative mammogram must not discourage biopsy of a clinically suspicious lesion. Electronically Signed By: Tatiana Holm M.D., Ph.D. richard/austen:06/05/2024 16:27:22 letter sent: Normal Exam ACR BI-RADS Category 1: Negative
== END ==
PROVIDERS: PCP Internal Medicine; Referring Provider Internal Medicine; Visit Provider Internal Medicine
DX: Z12.31 Encounter for screening mammogram for malignant neoplasm of breast (principal)
CPT/HCPCS: 77063; 77067

== ENCOUNTER 2025-02-07 17:42 | Emergency (ER) | payer MEDICARE, SELFPAY ==
[2025-02-07 18:02] VITALS: BP 147/82; PULSE 87; RESP 18; TEMP 36.7; O2SAT 96; BMI 30.2
[2025-02-07 19:32] VITALS: PULSE 78; O2SAT 95
[2025-02-07 19:33] VITALS: BP 165/84; PULSE 79; O2SAT 96
--- NOTE | 2025-02-07 20:03 | ED.NEUROSD ---
HPI - Neuro Symptoms/Deficit General Chief Complaint: Neuro Symptoms/Deficit Stated Complaint: hx of transverse myelitis- tremor, numbness r arm Time Seen by Provider: 02/07/25 19:54 Source: patient Mode of arrival: Ambulatory History of Present Illness HPI Narrative: Patient is a 74-year-old female with a past medical history of hyperlipidemia, COPD not requiring supplemental oxygen at baseline, spinal stenosis in the cervical and lumbar spine, comes into the ED from home for evaluation of leg tremors which she describes as ?internal and right arm numbness states that she does have this normally but is worse than baseline, as well as increased generalized weakness, she states that she does have a history of transverse myelitis post COVID vaccine and states that she did get a shingles vaccine on 01/29/2025. She denies any other symptoms such as headache visual disturbances chest pain shortness breath fever chills nausea vomiting abdominal pain or any other GI/ symptoms time. Patient denies any saddle paresthesias denies any bowel or urinary incontinence or retention On Anticoagulants: No Related Data Home Medications ?Medication ?Instructions ?Recorded ?Confirmed multivitamin,gg-wemy-tuftppjc 1 tab PO DAILY 08/14/18 03/02/24 (Complete Multivitamin tablet) cetirizine 10 mg capsule 10 mg PO DAILY 09/09/18 03/02/24 celecoxib 200 mg capsule 200 mg PO DAILY 12/12/23 03/02/24 fluoxetine 40 mg capsule 40 mg PO DAILY 12/12/23 03/02/24 coenzyme Q10 100 mg capsule (Co 100 mg PO DAILY 01/16/24 03/02/24 Q-10) Previous Rx's ?Medication ?Instructions ?Recorded Disabled parking permit #1 ea 09/09/18 mirtazapine 15 mg tablet 15 mg PO DAILY #90 tabs 12/24/18 fluticasone propionate 50 2 spray intranasal DAILY #54.6 01/20/19 mcg/actuation nasal grams spray,suspension (Allergy Relief (fluticasone)) azelastine 137 mcg (0.1 %) nasal 137 mcg (0.137 mL) intranasal BID 03/02/24 spray #90 mL budesonide-formoterol HFA 160 2 puff inhalation BID PRN 03/02/24 mcg-4.5 mcg/actuation aerosol shortness of breath or wheezing inhaler (Symbicort) #30.6 grams Allergies Allergy/AdvReac Type Severity Reaction Status Date / Time No Known Drug Allergies Allergy Verified 02/07/25 18:05 Review of Systems Review of Systems Narrative: General: Denies fever, chills, weight loss HEENT: Denies headache, eye drainage, eye irritation, head trauma, sore throat, voice change Cardiovascular: Denies any chest pain, palpitations, tachycardia Respiratory: Denies any shortness of breath, cough, wheeze, stridor GI/: Denies any abdominal pain, nausea, vomiting, diarrhea, bright red blood per rectum, melanotic stools, urinary frequency, urinary retention, dysuria, hematuria MSK: Denies any joint pain, muscle pains, swelling Skin: Denies any rashes, lesions, discoloration Neuro: Positive increased leg tremor right arm numbness, Denies any headache, lightheadedness, dizziness, fainting Psych: Denies SI/HI Hematologic/Lymphatic On Anticoagulants: No Patient History Medical History Vision disorder Actinic keratosis Osteoarthritis (~1989) Bronchial spasms Postnasal drip (~1994) COPD (chronic obstructive pulmonary disease) (~1994) Chronic cough (~1994) Depression (~1984) Anxiety (~1984) Scoliosis Back problem (~2007) Foot pain (~2016) Cervical spine disease (~2016) Rubella (~1956) Measles (~1956) Chicken pox (~1954) Vitreous detachment (~2012) History of recurrent ear infection (~1984) Hearing loss (~2012) Cataracts, bilateral (~2015) GERD (gastroesophageal reflux disease) (~2014) Diverticular disease (~2013) Colon polyps (~2015) Adrenal mass (~2015) Hyperlipidemia (~2005) Surgical History Anesthesia History of surgery (~1996) History of ear surgery (~1984) History of tubal ligation (~1980) History of tonsillectomy (~1953) Fractures (~1988) History of nasal surgery (~2014) History of cholecystectomy (~2016) Family History Father Heart disease Hypertension Stroke Mother Diabetes mellitus Brother Ulcerative colitis Grandfather Stroke Grandfather Stroke Grandmother Heart disease Social History Smoking Status: Never smoker second hand exposure: No alcohol intake: current (1-2 glasses of wine a day) substance use type: does not use Smoking Status: Never smoker alcohol intake frequency: a few times a week Exam Narrative Exam Narrative: General: Cooperative, well-developed, not in acute distress HEENT: Normocephalic, atraumatic, PERRLA, normal sclera, eyelids normal Neck: Active full range of motion, atraumatic Chest: Normal to inspection, negative crepitus, no overlying erythema ecchymosis Respiratory: Normal respiratory effort, not in acute respiratory distress, clear to auscultation bilaterally negative cough, wheeze, tachypnea, rhonchi, rales Cardiology: Regular rate rhythm negative gallop, murmur, rubs GI/: No tenderness to palpation, soft, non rigid, normal to inspection, exam deferred MSK: Full active range of motion in all 4 extremities, atraumatic, no tenderness to palpation of any bony prominences, 5/5 strength bilateral upper and lower extremity no visible tremors noted Skin: No rashes or lesions noted Neuro: Alert awake oriented x3, moves all 4 extremities spontaneously, cranial nerves intact, able to answer all questions appropriately follows commands appropriately Psych: Cooperative, negative suicidal or homicidal ideations Initial Vital Signs Initial Vital Signs: Vital Signs Temperature 98.0 F 02/07/25 18:02 Pulse Rate 87 02/07/25 18:02 Respiratory Rate 18 02/07/25 18:02 Blood Pressure 147/82 H 02/07/25 18:02 Pulse Oximetry 96 02/07/25 18:02 Oxygen Delivery Method Room Air 02/07/25 18:02 Course Orders Ordered: ED Orders 02/07/25 20:18 XR chest 1V Stat EKG-12 Lead Stat 02/07/25 20:19 CT angio head and neck Stat CT head/brain wo con Stat 02/07/25 20:20 Complete Blood Count AUTO DIFF Stat Comprehensive Metabolic Panel Stat Lipase Stat MAG [Magnesium] Stat Troponin & CK Cardiac Panel Stat Vital Signs Vital signs: Vital Signs - 8 hr 02/07/25 18:02 02/07/25 19:32 02/07/25 19:33 Temperature 98.0 F Pulse Rate 87 78 Respiratory Rate 18 Blood Pressure 147/82 H 165/84 H Pulse Oximetry 96 95 Oxygen Delivery Method Room Air 02/07/25 19:33 02/07/25 20:04 02/07/25 22:00 Temperature Pulse Rate 79 89 57 L Respiratory Rate 18 Blood Pressure 166/75 H Pulse Oximetry 96 96 98 Oxygen Delivery Method Room Air Room Air MDM - Neuro Symptoms/Deficit Differential Diagnosis Differential diagnosis: Likely other (CVA, electrolyte abnormality, transverse myelitis,) Lab Data 02/07/25 20:20 02/07/25 20:20 Labs: Lab Results 02/07/25 Range/Units 20:20 WBC 7.1 (4.5-11.0) X10^3/uL RBC 4.27 (4.0-5.2) X10^6/uL Hgb 13.0 (12.0-16.0) g/dL Hct 38.3 (36-46) % MCV 89.6 (80-100) fL MCH 30.3 (26-34) PG MCHC 33.9 (30-36) % RDW 14.1 (11.6-14.8) % Plt Count 252 (150-400) X10^3/uL Neut % (Auto) 75.3 H (50-75) % Lymph % (Auto) 17.9 L (25-40) % [place] % (Auto) 4.4 (3-14) % Eos % (Auto) 1.3 L (2-4) % Baso % (Auto) 1.1 (0-2) % Neut # (Auto) 5400 (1259-5886) /uL Lymph # (Auto) 1300 (3587-5628) /uL [place] # (Auto) 300 (0-900) /uL Eos # (Auto) 100 (0-450) /uL Baso # (Auto) 100 (0-100) /uL Sodium 140 (137-145) mmol/L Potassium 4.3 (3.4-5.1) mmol/L Chloride 107 (98-107) mmol/L Carbon Dioxide 24 (22-32) mmol/L BUN 22 H (7-17) mg/dL Creatinine 0.72 (0.52-1.04) mg/dL Estimated GFR > 60 (>60) mL/min BUN/Creatinine Ratio 30.6 H (6-22) Glucose 118 H (70-99) mg/dL Calcium 9.1 (8.4-10.2) mg/dL Magnesium 2.0 (1.6-2.3) mg/dL Total Bilirubin 0.4 (0.2-1.3) mg/dL AST 46 H (14-36) IU/L ALT 50 H (<35) IU/L Alkaline Phosphatase 128 H (38-126) U/L Total Creatine Kinase 51 (30-135) U/L Troponin I < 0.012 (0.01-0.034) ng/mL Total Protein 7.5 (6.3-8.2) g/dL Albumin 4.5 (3.5-5.0) g/dL Globulin 3.0 (1.7-4.1) g/dL Albumin/Globulin Ratio 1.5 (1.0-2.8) Lipase 126 (23-300) U/L Imaging Data CT scan - head: Radiologist's Impression: [place] [address] CT Scan Report Signed Patient: Rosio Banks MR#: [id number] : 1950 Acct:[id number] Age/Sex: 74 / F Date of Service: 02/07/25 Loc: ED Accession Number: [id number] Procedure: CT head/brain wo con Ordering Provider: Bimal Haney D.O. PROCEDURE: CT HEAD/BRAIN WO CON INDICATIONS: right hang tingling, hx of transverse myelitis TECHNIQUE: Noncontrast 4.5 mm thick angled axial sections acquired from the foramen magnum to the vertex, with coronal and sagittal reformats. For radiation dose reduction, the following was used: automated exposure control, adjustment of mA and/or kV according to patient size. COMPARISON: None. FINDINGS: Image quality: Diagnostic. CSF spaces: Basal cisterns are patent. No extra-axial fluid collections. The ventricles are symmetric in size and shape. Brain: No intracranial bleeds or mass effect. There is cerebral volume loss, with resultant ventricular and sulcal prominence. There are periventricular and deep white matter chronic small vessel ischemic changes. There is intracranial internal carotid artery atherosclerosis. Skull and face: Calvarium and visualized facial bones appear intact, without suspicious lesions. Sinuses: Visualized sinuses and mastoids are clear. IMPRESSION: No acute intracranial pathology. Chest x-ray: Radiologist's Impression: [address] [address] XRay Report Signed Patient: Rosio Banks MR#: [id number] : 1950 Acct:[id number] Age/Sex: 74 / F Date of Service: 02/07/25 Loc: ED Accession Number: [id number] Procedure: XR chest 1V Ordering Provider: Bimal Haney D.O. PROCEDURE: XR CHEST 1V INDICATIONS: right hand tingling TECHNIQUE: One view of the chest was acquired. COMPARISON: [facility], , XR CHEST 2V, 04/13/2022, 15:51. [facility], , XR CHEST 2V, 06/30/2021, 10:43. FINDINGS: Surgical changes and devices: None. Lungs and pleura: Lungs are clear. No pleural effusions or pneumothorax. Mediastinum: Mediastinal contours appear normal. Heart size is normal. Bones and chest wall: No suspicious bony lesions. Overlying soft tissues appear unremarkable. IMPRESSION: No acute cardiopulmonary abnormality is seen. CTA - brain/neck: Radiologist's Impression: [address] [address] [address] Scan Report Signed Patient: Rosio Banks MR#: [id number] : 1950 Acct:[id number] Age/Sex: 74 / F Date of Service: 02/07/25 Loc: ED Accession Number: [id number] Procedure: CT angio head and neck Ordering Provider: Bimal Haney D.O. PROCEDURE: CT ANGIO HEAD AND NECK INDICATIONS: right hand tingling, hx of trasverse myleitis TECHNIQUE: After the administration of intravenous contrast, 1 mm thick sections acquired from the aortic arch through the [place]. 3-dimensional nlogkyg-tjwxjegvi-cxjehnxbqk (MIP) and/or volume rendering reformats were acquired of the central intracranial vasculature and neck separately. For radiation dose reduction, the following was used: automated exposure control, adjustment of mA and/or kV according to patient size. COMPARISON: None. FINDINGS: Image quality: Diagnostic. Cerebral CT Angiogram: Internal carotid arteries: No acute findings. Intracranial ICA are patent with no significant stenosis. No occlusion. No aneurysm. Anterior cerebral arteries: Unremarkable. No significant stenosis. No occlusion. No aneurysm. Middle cerebral arteries: Unremarkable. No significant stenosis. No occlusion. No aneurysm. Posterior cerebral arteries: Unremarkable. No significant stenosis. No occlusion. No aneurysm. Basilar artery: Unremarkable. No significant stenosis. No occlusion. No aneurysm. Vertebral arteries: Unremarkable as visualized. Dural venous sinuses: Unremarkable given phase of enhancement. Other: Arterial phase appearance of the brain parenchyma is unremarkable. Neck CT Angiogram: Internal carotid arteries: Unremarkable. No significant stenosis. No dissection or occlusion. Common carotid arteries: Unremarkable. No significant stenosis. No dissection or occlusion. External carotid arteries: Unremarkable. No occlusion. Vertebral arteries: Unremarkable. No significant stenosis. No dissection or occlusion. Aortic Arch and Mediastinum: Partially visualized aortic arch unremarkable without evidence of aneurysm. Origins of the great vessels unremarkable. Other: Broad-based disc bulge and degenerative disc disease at C5-6, resulting in moderate spinal canal narrowing. IMPRESSION: No significant intracranial arterial abnormality is seen. No significant abnormality is seen within the arteries of the neck. Moderate spinal canal narrowing at C5-6 due to degenerative change. MDM Narrative Medical decision making narrative: Patient is a 74-year-old female with a past medical history COPD not requiring supplemental oxygen at baseline, hyperlipidemia, cervical stenosis with lesion, currently be followed by Dr. 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 She states that she did have a vaccine on 01/29/2025 with this was for shingles. She states that she got transverse myelitis several years ago after getting a COVID vaccine. She states that her symptoms have completely resolved and she is now back at baseline. She does state that she drank 4 cups of coffee and a glass of wine before all of this happened. She states that she just wanted to be evaluated to make sure nothing is progressing. Patient's chest x-ray without any acute cardiopulmonary abnormality, CT head CTA head and neck without any acute findings. I did offer patient possibility of admission versus transfer for further workup and MRI, however patient states that her symptoms are improving/back to baseline, she states that she feels like her symptoms were more likely secondary to her physical therapy that was done a few days ago. She states that she feels comfortable and would rather follow up with her neurologist in outpatient setting. Patient was given strict return precautions she verbalized understanding of this and agrees to being discharged home with outpatient follow up. Patient was able to stand bear weight ambulate unassisted here in the emergency department patient with NIH of 0 no focal deficits at time of discharge. Discharge Plan Departure Patient Disposition: Home Clinical Impression: Hand tingling Activity Restrictions/Additional Instructions: Please follow up with your neurologist and your primary care doctor Please read the discharge instructions sheet carefully and bring all papers to all doctor follow-up visits, as it may contain information that your doctor may want to see. Disease processes change and evolve, if your symptoms worsen or if you develop any new symptoms that are concerning to you please return for evaluation. Your evaluation today does not show any evidence of any life-threatening/serious illnesses requiring admission to the hospital or surgery. Please follow-up with your doctor for re-evaluation in approximately 1 day. Seek immediate medical attention for any worrisome symptoms. *If you do not have a primary care provider please contact the [facility] Resource line at [phone]. They will ask some questions about your medical history and help get you set up with a doctor in the community. Prescriptions: No Action cetirizine 10 mg capsule 10 mg PO DAILY (DME) Disabled parking permit Qty: 1 0RF Dose Instruction: Patient meets criteria for disabled placard ; Rx Instructions: Patient meets criteria for disabled placard ; multivitamin,yf-senb-znscmfbi [Complete Multivitamin] tablet 1 tab PO DAILY coenzyme Q10 [Co Q-10] 100 mg capsule 100 mg PO DAILY mirtazapine 15 mg tablet 15 mg PO DAILY Qty: 90 2RF fluticasone propionate [Allergy Relief (fluticasone)] 50 mcg/actuation spray,suspension 2 spray NASAL DAILY Qty: 54.6 3RF budesonide-formoterol [Symbicort] 160-4.5 mcg/actuation HFA aerosol inhaler 2 puff inhalation BID PRN (Reason: shortness of breath or wheezing) Qty: 30.6 4RF azelastine 137 mcg (0.1 %) aerosol,spray 137 mcg intranasal BID Qty: 90 4RF Rx Instructions: administer into each nostril celecoxib 200 mg capsule 200 mg PO DAILY fluoxetine 40 mg capsule 40 mg PO DAILY Referrals: Sabra Whitney MD [Primary Care Provider, Internal Medicine] Stand Alone Forms: Patient Portal/API
[2025-02-07 20:04] VITALS: PULSE 89; O2SAT 96
--- NOTE | 2025-02-07 20:18 | EKG_ITS ---
[address] [address] Test Date: 2025-02-07 Pat Name: Rosio Banks Department: [facility] Room: Gender: Female Director [employer]: VENANCIO : 1950 Requested By: Order Number: [id number] Reading MD: Bronson Venegas Measurements Intervals [place] Rate: 70 P: 49 [place]: 190 QRS: 46 QRSD: 90 T: 33 QT: 432 QTc: 466 Interpretive Statements Normal sinus rhythm Low voltage QRS Electronically Signed On 02-08-2025 10:20:06 PDT by Bronson Venegas
--- NOTE | 2025-02-07 20:18 | DI.RAD.S_ITS ---
PROCEDURE: XR CHEST 1V INDICATIONS: right hand tingling TECHNIQUE: One view of the chest was acquired. COMPARISON: [facility], CR, XR CHEST 2V, 04/13/2022, 15:51. [facility], CR, XR CHEST 2V, 06/30/2021, 10:43. FINDINGS: Surgical changes and devices: None. Lungs and pleura: Lungs are clear. No pleural effusions or pneumothorax. Mediastinum: Mediastinal contours appear normal. Heart size is normal. Bones and chest wall: No suspicious bony lesions. Overlying soft tissues appear unremarkable. IMPRESSION: No acute cardiopulmonary abnormality is seen. Dictated by: Jay Jay Sol M.D. on 02/07/2025 at 21:01 Approved by: Jay Jay Sol M.D. on 02/07/2025 at 21:02
--- NOTE | 2025-02-07 20:19 | DI.CT.S_ITS ---
PROCEDURE: CT ANGIO HEAD AND NECK INDICATIONS: right hand tingling, hx of trasverse myleitis TECHNIQUE: After the administration of intravenous contrast, 1 mm thick sections acquired from the aortic arch through the [place]. 3-dimensional jefztfr-syppzshap-ouekxjusnk (MIP) and/or volume rendering reformats were acquired of the central intracranial vasculature and neck separately. For radiation dose reduction, the following was used: automated exposure control, adjustment of mA and/or kV according to patient size. COMPARISON: None. FINDINGS: Image quality: Diagnostic. Cerebral CT Angiogram: Internal carotid arteries: No acute findings. Intracranial ICA are patent with no significant stenosis. No occlusion. No aneurysm. Anterior cerebral arteries: Unremarkable. No significant stenosis. No occlusion. No aneurysm. Middle cerebral arteries: Unremarkable. No significant stenosis. No occlusion. No aneurysm. Posterior cerebral arteries: Unremarkable. No significant stenosis. No occlusion. No aneurysm. Basilar artery: Unremarkable. No significant stenosis. No occlusion. No aneurysm. Vertebral arteries: Unremarkable as visualized. Dural venous sinuses: Unremarkable given phase of enhancement. Other: Arterial phase appearance of the brain parenchyma is unremarkable. Neck CT Angiogram: Internal carotid arteries: Unremarkable. No significant stenosis. No dissection or occlusion. Common carotid arteries: Unremarkable. No significant stenosis. No dissection or occlusion. External carotid arteries: Unremarkable. No occlusion. Vertebral arteries: Unremarkable. No significant stenosis. No dissection or occlusion. Aortic Arch and Mediastinum: Partially visualized aortic arch unremarkable without evidence of aneurysm. Origins of the great vessels unremarkable. Other: Broad-based disc bulge and degenerative disc disease at C5-6, resulting in moderate spinal canal narrowing. IMPRESSION: No significant intracranial arterial abnormality is seen. No significant abnormality is seen within the arteries of the neck. Moderate spinal canal narrowing at C5-6 due to degenerative change. Any quantitative measurements of stenosis were performed using NASCET criteria. Dictated by: Jay Jay Sol M.D. on 02/07/2025 at 20:58 Approved by: Jay Jay Sol M.D. on 02/07/2025 at 21:01
--- NOTE | 2025-02-07 20:19 | DI.CT.S_ITS ---
PROCEDURE: CT HEAD/BRAIN WO CON INDICATIONS: right hang tingling, hx of transverse myelitis TECHNIQUE: Noncontrast 4.5 mm thick angled axial sections acquired from the foramen magnum to the vertex, with coronal and sagittal reformats. For radiation dose reduction, the following was used: automated exposure control, adjustment of mA and/or kV according to patient size. COMPARISON: None. FINDINGS: Image quality: Diagnostic. CSF spaces: Basal cisterns are patent. No extra-axial fluid collections. The ventricles are symmetric in size and shape. Brain: No intracranial bleeds or mass effect. There is cerebral volume loss, with resultant ventricular and sulcal prominence. There are periventricular and deep white matter chronic small vessel ischemic changes. There is intracranial internal carotid artery atherosclerosis. Skull and face: Calvarium and visualized facial bones appear intact, without suspicious lesions. Sinuses: Visualized sinuses and mastoids are clear. IMPRESSION: No acute intracranial pathology. Dictated by: Jay Jay Sol M.D. on 02/07/2025 at 20:57 Approved by: Jay Jay Sol M.D. on 02/07/2025 at 20:58
[2025-02-07 20:32] LABS: Add Manual Diff / Slide Review NO; Hematocrit 38.3 % (36-46); Hemoglobin 13.0 g/dL (12.0-16.0); Lymphocytes Absolute Auto 1300 /uL (1100-4500); Mean Corpuscular HGB Conc 33.9 % (30-36); Mean Corpuscular Hemoglobin 30.3 PG (26-34); Mean Corpuscular Volume 89.6 fL (80-100); Platelet Count 252 X10^3/uL (150-400)
[2025-02-07 20:45] LABS: Alanine Aminotransferase 50 IU/L (<35); Albumin 4.5 g/dL (3.5-5.0); Albumin Globulin Ratio 1.5 (1.0-2.8); Alkaline Phosphatase 128 U/L (38-126); Blood Urea Nitrogen 22 mg/dL (7-17); Calcium 9.1 mg/dL (8.4-10.2); Carbon Dioxide 24 mmol/L (22-32); Chloride 107 mmol/L (98-107); Creatine Kinase 51 U/L (30-135); Estimated Glomerular Filt Rate > 60 mL/min (>60); Globulin 3.0 g/dL (1.7-4.1); Glucose 118 mg/dL (70-99); HEMOLYSIS 28 (0-50); Lipase 126 U/L (23-300); Magnesium 2.0 mg/dL (1.6-2.3); Potassium 4.3 mmol/L (3.4-5.1); Sodium 140 mmol/L (137-145); Total Protein 7.5 g/dL (6.3-8.2)
[2025-02-07 20:56] LABS: Troponin I < 0.012 ng/mL (0.01-0.034)
[2025-02-07 22:00] VITALS: BP 166/75; PULSE 57; RESP 18; O2SAT 98
--- NOTE | 2025-02-07 22:38 | PC.NURSE ---
NIHH and swallow screen not indicated at this time
[2025-02-07 23:06] VITALS: BP 146/74; PULSE 69; RESP 18; O2SAT 94
== END 2025-02-07 23:11 | disposition home or self-care (01) ==
PROVIDERS: Emergency Provider Student in an Organized Health Care Education/Training Program; PCP Internal Medicine
DX: R20.2 Paresthesia of skin (principal)
CPT/HCPCS: 36415; 70450; 70496; 70498; 71045; 80053; 82550; 83690; 83735; 84484; 85025; 93005; 99284

== ENCOUNTER → 2025-02-09 13:29 | Outpatient (CLI) | payer MEDICARE, SELFPAY ==
[2025-02-09 15:00] LABS: Cholesterol 193 mg/dL (140-199); HDL Cholesterol 74 mg/dL (40-60); Triglycerides 71 mg/dL (35-150)
== END ==
PROVIDERS: PCP Internal Medicine; Referring Provider Internal Medicine Cardiovascular Disease; Visit Provider Internal Medicine Cardiovascular Disease
DX: E78.5 Hyperlipidemia, unspecified (principal)
CPT/HCPCS: 36415; 80061